=== PATIENT | female | born 1980 | race Caucasian/White ===

== ENCOUNTER 2016-05-02 12:17 | Emergency (ER) | payer SELFPAY ==
--- NOTE | 2016-05-02 17:36 | Emergency Department Report ---
ED Chest Pain HPI - General Chief Complaint: Headache Stated Complaint: CHEST/HEAD PAIN Time Seen by Provider: 05/02/16 16:26 Source: patient Mode of arrival: Ambulatory Limitations: Language Barrier - History of Present Illness Initial Comments: Patient presents with chest pain, eye pain, neck pain, headache 1 week. She states her cousin 1 week ago from a heart attack and she has been having the symptoms since then. She denies nausea, vomiting, fever, injury. She only speaks Irish and this information was gathered by [employer]. She is with her son who speaks very little Wolof as well. It was attempted to use the language line but we were unable to connect. -: Gradual Pain Location: left chest Pain Radiation: none Severity: moderate Severity scale (0 -10): 10 Consistency: intermittent Improves With: nothing re: denies: nausea, vomting, diaphoresis - Related Data Allergies Allergy/AdvReac Type Severity Reaction Status Date / Time No Known Allergies Allergy Verified 05/02/16 13:11 ED Review of Systems ROS: Stated complaint: CHEST/HEAD PAIN Other details as noted in HPI ED Physical Exam - General Limitations: Language Barrier ED Course Vital Signs 05/02/16 13:00 Temperature 98.5 F Pulse Rate 67 Respiratory 18 Rate Blood Pressure 122/80 [Right] O2 Sat by Pulse 99 Oximetry Critical care attestation.: If time is entered above; I have spent that time in minutes in the direct care of this critically ill patient, excluding procedure time. ED Disposition Condition: Stable
--- NOTE | 2016-05-02 17:43 | Emergency Department Report ---
Chief Complaint: Headache Stated Complaint: CHEST/HEAD PAIN Time Seen by Provider: 05/02/16 16:26 - HPI History of Present Illness: Patient presents with chest pain, eye pain, neck pain, headache 1 week. She states her cousin 1 week ago from a heart attack and she has been having the symptoms since then. She denies nausea, vomiting, fever, injury. She only speaks Iranian and this information was gathered by [employer]. She is with her son who speaks very little French as well. It was attempted to use the language line but we were unable to connect. - ROS Review of Systems: All other systems unremarkable except documentation in HPI - Exam Vital Signs: Vital Signs 05/02/16 13:00 Temperature 98.5 F Pulse Rate 67 Respiratory 18 Rate Blood Pressure 122/80 [Right] O2 Sat by Pulse 99 Oximetry Physical Exam: General: Female well-developed and nourished, no apparent distress noted, ambulatory. Cardiovascular: Heart sounds present S1-S2, no murmur, gallop, or ectopy noted,. Respiratory: Chest symmetry with respirations, lungs clear to auscultate upper and lower lobes, respirations even and unlabored, no rales, rhonchi, crackles noted. Peripheral Vascular: Radial and pedal pulses are 2/4 bilaterally. Extremities: Warm without clubbing, edema or cyanosis. Abdomen: bowel sounds present, soft, nondistended, no rigidity, guarding or rebound tenderness Neurological: The patient is oriented to person, place and time. Strength and sensation are grossly intact. Face is symmetric. There is no focal deficit. Musculo Skeletal - 5/5 strength, normal range of motion, no swollen or erythematous joints. Psych: AxOx3, answers questions appropriately, mood full range, affect normal, normal speech and tone. MSE screening note: Focused history and physical exam performed. Due to findings the following was ordered: seen by provider, laboratory and radiology studies ordered, and to go to main ED to be seen by physician ED Medical Decision Making - Medical Decision Making seen by provider, laboratory and radiology studies ordered, and to go to main ED to be seen by physician ED Disposition for MSE Condition: Stable
[2016-05-02 18:01] VITALS: BP 115/68
[2016-05-02 18:28] LABS: Basophils % (Auto) 0.5 % (0.0-1.8); Eosinophils % (Auto) 1.3 % (0.0-4.3); Hematocrit 37.1 % (30.3-42.9); Hemoglobin 12.4 gm/dl (10.1-14.3); Mean Corpuscular HGB Conc 33 % (30-34); Mean Corpuscular Hemoglobin 28 pg (28-32); Mean Corpuscular Volume 84 fl (79-97); Platelet Count 208 K/mm3 (140-440); Red Cell Distribution Width 14.4 % (13.2-15.2); White Blood Count 8.7 K/mm3 (4.5-11.0)
[2016-05-02 18:39] LABS: Bacteria,Urine 1+ /HPF (Negative); Bilirubin,Urine NEG (Negative); Blood,Urine MOD (Negative); Ketones,Urine NEG (Negative); Leukocyte Esterase,Urine NEG (Negative); Mucus,Urine FEW /HPF; Nitrite,Urine NEG (Negative); Protein,Urine <15 mg/dL mg/dL (Negative); Urobilinogen,Urine < 2.0 mg/dL (<2.0)
[2016-05-02 18:40] LABS: Alanine Aminotransferase 8 units/L (7-56); Albumin/Globulin Ratio 1.5 %; Alkaline Phosphatase 81 units/L (35-129); BUN/Creatinine Ratio 16.66; Bilirubin,Total < 0.2 mg/dL (0.1-1.2); Blood Urea Nitrogen 10 mg/dL (7-17); Calcium 8.6 mg/dL (8.4-10.2); Carbon Dioxide 23 mmol/L (22-30); Glucose 79 mg/dL (65-100); Total Protein 6.7 g/dL (6.3-8.2)
[2016-05-02 18:41] LABS: Chloride 105.3 mmol/L (98-107); Potassium 3.8 mmol/L (3.6-5.0); Sodium 141 mmol/L (137-145)
[2016-05-02 18:50] LABS: Anion Gap 17 mmol/L
--- NOTE | 2016-05-02 19:24 | Emergency Department Report ---
ED Chest Pain HPI - General Chief Complaint: Headache Stated Complaint: CHEST/HEAD PAIN Time Seen by Provider: 05/02/16 16:26 Source: patient Mode of arrival: Ambulatory Limitations: Language Barrier (pt only speaks Icelandic, the language line was utilized) - History of Present Illness Initial Comments: Patient presents with chest pain, neck pain, eye pain all on the left side 5 days. She also admits to a headache that is mild. She states she has been under an increased amount of stress due to losing a cousin to a heart attack. She denies nausea, vomiting, fever. Admits to some double vision but not currently. She denies shortness of breath, injury, hitting her head. She is not currently having chest pain. MD Complaint: chest pain -: Gradual Pain Location: left chest Pain Radiation: LUE, neck Severity: moderate Severity scale (0 -10): 10 Quality: aching, dull Consistency: intermittent (worse in the morning) Improves With: nothing Worsens With: nothing Context: other (recent loss of a family member) re: denies: nausea, vomting, diaphoresis Other Symptoms: denies: cough, syncope, palpitations - Related Data On Oral Contraceptives: No Previous Rx's Medication Instructions Recorded Last Taken Type traMADol [Ultram 50 MG tab] 50 mg PO BID PRN #14 tablet 05/02/16 Unknown Rx Allergies Allergy/AdvReac Type Severity Reaction Status Date / Time No Known Allergies Allergy Verified 05/02/16 13:11 BARBARA score - Barbara Score Age > 65: (0) No Aspirin use within the Past 7 Days: (0) No 3 or more CAD Risk Factors: (0) No 2 or more Angina events in past 24 hrs: (0) No Known CAD with more than 50% Stenosis: (0) No Elevated Cardiac Markers: (0) No ST Deviation Greater than 0.5mm: (0) No BARBARA Score: 0 ED Review of Systems ROS: Stated complaint: CHEST/HEAD PAIN Other details as noted in HPI Constitutional: denies: chills, fever ENT: denies: ear pain, throat pain Respiratory: denies: cough, shortness of breath, wheezing Cardiovascular: chest pain. denies: palpitations, syncope Endocrine: no symptoms reported Gastrointestinal: denies: abdominal pain, nausea, diarrhea Genitourinary: denies: urgency, dysuria, discharge Musculoskeletal: as per HPI Skin: denies: rash, lesions Neurological: headache (mild). denies: numbness, abnormal gait Psychiatric: anxiety (patient is requesting medication for "stress" due to her recent family loss) ED Past Medical Hx - Social History Smoking Status: Current Every Day Smoker Substance Use Type: None - Medications Home Medications: Home Medications Medication Instructions Recorded Confirmed Last Taken Type traMADol [Ultram 50 MG tab] 50 mg PO BID PRN #14 tablet 05/02/16 Unknown Rx ED Physical Exam - General Limitations: Language Barrier General appearance: alert, in no apparent distress - Head Head exam: Present: atraumatic, normocephalic - Eye Eye exam: Present: normal appearance, PERRL, EOMI - ENT ENT exam: Present: mucous membranes moist - Neck Neck exam: Present: normal inspection, tenderness (left trapezius), full ROM. Absent: lymphadenopathy - Respiratory Respiratory exam: Present: normal lung sounds bilaterally. Absent: respiratory distress, wheezes, rales, rhonchi - Cardiovascular Cardiovascular Exam: Present: regular rate, normal rhythm. Absent: systolic murmur, diastolic murmur, rubs, gallop - GI/Abdominal GI/Abdominal exam: Present: soft, normal bowel sounds - Extremities Exam Extremities exam: Present: normal inspection, full ROM - Back Exam Back exam: Present: normal inspection, full ROM - Neurological Exam Neurological exam: Present: alert, oriented X3 - Psychiatric Psychiatric exam: Present: normal affect, normal mood - Skin Skin exam: Present: warm, dry, intact, normal color. Absent: rash ED Course Vital Signs 05/02/16 05/02/16 13:00 18:00 Temperature 98.5 F 98.6 F Pulse Rate 67 88 Respiratory 18 18 Rate Blood Pressure 122/80 115/68 [Right] O2 Sat by Pulse 99 100 Oximetry ED Medical Decision Making - Lab Data Result diagrams: 05/02/16 18:00 05/02/16 18:00 - Medical Decision Making Patient presents with chest pain, neck pain 5 days due to a recent loss of a family member. She states she has been under a tremendous amount of stress recently. EKG was within normal limits, CBC, CMP, troponin, UA all within normal limits. Spoke with Dr. Springer about this dictation he states to discharge her with follow-up to outpatient facility. I will give her tramadol for her left-sided neck pain. - Differential Diagnosis musculoskeletal pain, muscle strain, Critical Care Time: No Critical care attestation.: If time is entered above; I have spent that time in minutes in the direct care of this critically ill patient, excluding procedure time. ED Disposition Clinical Impression: Musculoskeletal pain Disposition: DISCHARGED TO HOME OR SELFCARE Is pt being admited?: No Does the pt Need Aspirin: No Condition: Stable Instructions: Musculoskeletal Pain (ED) Additional Instructions: Follow-up in the ED if chest pain returns with dizziness, nausea, vomiting. Prescriptions: traMADol [Ultram 50 MG tab] 50 mg PO BID PRN #14 tablet PRN Reason: Pain Referrals: PRIMARY CARE,MD [Primary Care Provider] - 3-5 Days [facility] [Outside] - 3-5 Days Time of Disposition: 19:33 Print Language: MALAY
== END 2016-05-02 19:34 | disposition home or self-care (01) ==
LOC: ED 12:17
DX: M79.1 Myalgia (principal); R51 Headache; R07.9 Chest pain, unspecified; F41.9 Anxiety disorder, unspecified; F17.200 Nicotine dependence, unspecified, uncomplicated
CPT/HCPCS: 36415; 80053; 81001; 84484; 84703; 85025; 93005; 93010; 99284